=== PATIENT | female | born 1990 | race Caucasian/White ===

== ENCOUNTER 2022-07-23 17:11 | Emergency (ER) | payer SELFPAY ==
--- NOTE | 2022-07-23 18:05 | RAD REPORT ---
EXAM DESCRIPTION: RAD - Foot Right 3 View - 07/23/2022 5:50 pm CLINICAL HISTORY: Right foot pain status post injury FINDINGS: No fracture or dislocation is seen 1 millimeter linear radiopaque density lies within plantar soft tissues at the level of first IP join t which may probably represents a foreign body and should be correlated clinically
[2022-07-23] MEDS ORDERED: TETANUS & DIPHTHERIA TOX,ADULT 0.5 ML VIAL ONE (18:35)
[2022-07-23] MEDS ORDERED: BUPIVACAINE 0.5% PF 10 ML VIAL ONE (19:29)
[2022-07-23] MEDS ORDERED: LIDOCAINE 1% 20 ML MDV ONE (19:29)
--- NOTE | 2022-07-23 20:21 | EDPHYS ---
Physician Documentation [facility] Name: Nayla Dial Age: 32 yrs Sex: Female : 1990 Arrival Date: 07/23/2022 Time: 17:11 Bed 23 Private MD: ED Physician Kendall Stephens HPI: 07/23 17:35 This 32 yrs old Female presents to ER via Ambulatory with complaints of Infected toe. cp 17:35 The patient presents with right big toe pain. cp 17:35 Context: resulted from stepping on piece of glass. Associated signs and symptoms: cp Pertinent positives: swelling, erythema, Pertinent negatives: calf tenderness, fever, numbness, warmth. Patient reports stepping on shattered glass about 1 week ago and concerned piece of glass remains embedded in right great toe. 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 - Social history:: Smoking status: . ROS: 17:40 Constitutional: Negative for body aches, chills, fever, poor PO intake. cp 17:40 MS/extremity: Positive for pain, of the right great toe, foreign body sensation. 17:40 All other systems are negative. Exam: 17:45 Constitutional: The patient appears in no acute distress, alert, awake, well developed, cp well nourished. 17:45 Head/Face: Normocephalic, atraumatic. cp 17:45 Chest/axilla: Inspection: normal. 17:45 Cardiovascular: Rate: normal. 17:45 Respiratory: the patient does not display signs of respiratory distress, Respirations: normal. 17:45 Musculoskeletal/extremity: Extremities: grossly normal except: noted in the right great toe: pain, tenderness, mild swelling noted medial side distal phalanx right great toe. mild erythema and ecchymosis noted, ROM: full active range of motion, in the right great toe, Perfusion: the extremity is normally perfused throughout. Vital Signs: 17:29 BP 128 / 65; Pulse 86; Resp 16; Temp 97.9; Pulse Ox 100% on R/A; Weight 92.99 kg; Pain iw 3/10; 19:28 BP 119 / 68; Pulse 60; Resp 18; Pulse Ox 100% on R/A; Pain 0/10; pf1 17:29 Pain Scale: Adult iw 19:28 Pain Scale: Adult pf1 MDM: 17:26 Patient medically screened. cp 20:20 Data reviewed: vital signs, nurses notes, radiologic studies, plain films. cp 20:20 Differential diagnosis: fracture, foreign body, cellulitis, abscess. Counseling: I had cp a detailed discussion with the patient and/or guardian regarding: the historical points, exam findings, and any diagnostic results supporting the discharge/admit diagnosis, radiology results, to return to the emergency department if symptoms worsen or persist or if there are any questions or concerns that arise at home. ED course: VSS. Partial digital block performed with 6 ccs mixture 1% lidocaine w/o epi and 0.5% marcaine of right great toe. Small incision made lateral side distal phalanx and attempt to remove foreign body unsuccessful. Small amount pus drained from area. 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 Exp: iw 07/14/2023. Lot #: [id number]. } Route: IM; Site: left deltoid; 19:29 Follow up: Response: No adverse reaction; Marked relief of symptoms pf1 20:31 Drug: Lidocaine Infiltration (1 %) 10 ml Volume: 20 ml; Route: Infiltration; mb9 20:32 Follow up: Response: No adverse reaction; Marked relief of symptoms pf1 20:31 Drug: Bupivacaine Infiltration (0.25 %) 10 ml Route: Infiltration; mb9 20:32 Follow up: Response: No adverse reaction; Marked relief of symptoms pf1 Disposition Summary: 07/23/22 20:20 Discharge Ordered Location: Home cp Condition: Stable cp Problem: new cp Symptoms: have improved cp Diagnosis - Superficial foreign body of toe - right great toe(07/23/22 20:21) cp Followup: cp - With: Crow Nunez MD - When: 2 - 3 days - Reason: Recheck today's complaints Discharge Instructions: - Discharge Summary Sheet cp - Foreign Body cp - Form - Excuse from Work, School, or Physical Activity cp Forms: - Medication Reconciliation Form cp - Thank You Letter cp - Antibiotic Education cp - Prescription Opioid Use cp Prescriptions: - Ibuprofen 800 mg Oral Tablet - take 1 tablet by ORAL route every 8 hours As needed take with food; 30 tablet; cp Refills: 0, Product Selection Permitted - Bactrim DS 800-160 mg Oral Tablet - take 1 tablet by ORAL route every 12 hours for 10 days; 20 tablet; Refills: 0, cp Product Selection Permitted Signatures: Dispatcher [employer] Mignon Blair RN RN iw Dionicio Shelley PA PA cp Nestor, Ena Valdez RN RN mb9 Malu Washington RN pf1 Corrections: (The following items were deleted from the chart) 20:21 20:20 Superficial foreign body of toe cp cp 07/24 19:27 19:26 MS/extremity: Positive for pain, of the right great toe, foreign body sensation, cp cp 19:27 19:26 Constitutional: Negative for body aches, chills, fever, poor PO intake, cp cp 19:27 19:26 All other systems are negative, cp cp
--- NOTE | 2022-07-23 20:21 | ER ---
Nurse's Notes [facility] Name: Nayla Dial Age: 32 yrs Sex: Female : 1990 Arrival Date: 07/23/2022 Time: 17:11 Bed 23 Private MD: Diagnosis: Superficial foreign body of toe-right great toe Presentation: 07/23 17:29 Chief complaint: Patient states: stepped on some glass over a week ago and she is iw afraid it's still in there, she has swelling and bruising to right great toe. Coronavirus screen: At this time, the client does not indicate any symptoms associated with coronavirus-19. Ebola Screen: Patient negative for fever greater than or equal to 101.5 degrees Fahrenheit, and additional compatible Ebola Virus Disease symptoms Patient denies exposure to infectious person. Patient denies travel to an Ebola-affected area in the 21 days before illness onset. No symptoms or risks identified at this time. Initial Sepsis Screen: Does the patient meet any 2 criteria? No. Patient's initial sepsis screen is negative. Does the patient have a suspected source of infection? No. Patient's initial sepsis screen is negative. Risk Assessment: Do you want to hurt yourself or someone else? Patient reports no desire to harm self or others. Onset of symptoms was July 16, 2022. 17:29 Method Of Arrival: Ambulatory iw 17:29 Acuity: CHA 4 iw Triage Assessment: 19:30 General: Behavior is calm, cooperative, appropriate for age, quiet. 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 - Social history:: Smoking status: . Screenin:25 [facility] ED Fall Risk Assessment (Adult) History of falling in the last 3 months, mb9 including since admission No falls in past 3 months (0 pts) Confusion or Disorientation No (0 pts) Intoxicated or Sedated No (0 pts) Impaired Gait No (0 pts) Mobility Assist Device Used No (0 pt) Altered Elimination No (0 pt) Score/Fall Risk Level 0 - 2 = Low Risk Oriented to surroundings, Maintained a safe environment, Educated pt \T\ family on fall prevention, incl call for assistance when getting out of bed. Abuse screen: Denies threats or abuse. Nutritional screening: No deficits noted. Tuberculosis screening: No symptoms or risk factors identified. Assessment: 19:24 General: Appears in no apparent distress. Pain: Complains of pain in right big toe Pain mb9 radiates to right foot Pain currently is 8 out of 10 on a pain scale. Quality of pain is described as throbbing, Pain began 2-3 days ago. Is continuous, Aggravated by increased activity. Neuro: Arias Agitation-Sedation Scale (RASS): 0 - Alert and Calm Level of Consciousness is awake, alert, obeys commands, Oriented to person, place, time, situation, Appropriate for age. Cardiovascular: Patient's skin is warm and dry. Respiratory: Airway is patent. GI: No signs and/or symptoms were reported involving the gastrointestinal system. Derm: Skin is pink, warm \T\ dry. Musculoskeletal: Range of motion: intact in all extremities, Swelling present in right big toe. Vital Signs: 17:29 BP 128 / 65; Pulse 86; Resp 16; Temp 97.9; Pulse Ox 100% on R/A; Weight 92.99 kg; Pain iw 3/10; 19:28 BP 119 / 68; Pulse 60; Resp 18; Pulse Ox 100% on R/A; Pain 0/10; pf1 17:29 Pain Scale: Adult iw 19:28 Pain Scale: Adult pf1 ED Course: 17:14 Patient arrived in ED. mr 17:16 Dionicio Shelley PA is PHCP. cp 17:16 Kendall Stephens MD is Attending Physician. cp 17:30 Triage completed. iw 17:31 Arm band placed on. iw 17:52 XRAY Foot RIGHT 3 View In Process Unspecified. EDMS 19:24 Ena Baez RN is Primary Nurse. mb9 19:26 Placed in gown. Bed in low position. Call light in reach. Side rails up X 1. Client mb9 placed on continuous cardiac and pulse oximetry monitoring. NIBP monitoring applied. 19:26 No provider procedures requiring assistance completed. Patient did not have IV access mb9 during this emergency room visit. 20:20 Crow Nunez MD is Referral Physician. 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 Exp: iw 07/14/2023. Lot #: [id number]. } Route: IM; Site: left deltoid; 19:29 Follow up: Response: No adverse reaction; Marked relief of symptoms pf1 20:31 Drug: Lidocaine Infiltration (1 %) 10 ml Volume: 20 ml; Route: Infiltration; mb9 20:32 Follow up: Response: No adverse reaction; Marked relief of symptoms pf1 20:31 Drug: Bupivacaine Infiltration (0.25 %) 10 ml Route: Infiltration; mb9 20:32 Follow up: Response: No adverse reaction; Marked relief of symptoms pf1 Medication: 19:25 VIS not applicable for this client. mb9 Outcome: 20:20 Discharge ordered by MD. cp 20:37 Discharged to home ambulatory. pf1 20:37 Condition: improved 20:37 Discharge instructions given to patient, Instructed on discharge instructions, follow up and referral plans. Demonstrated understanding of instructions, follow-up care, medications, Prescriptions given X 2. 20:37 Patient left the ED. pf1 Signatures: Dispatcher [employer] Ena Warner Irene RN QUINCY iw Dionicio Shelley PA PA cp Ena Baez RN RN Malu Khalil RN RN pf1
[2022-07-23 21:36] VITALS: BP 148/72; TEMP 98.5; O2SAT 100
== END 2022-07-23 20:37 | disposition home or self-care (01) ==
LOC: ER 17:11
PROC: 0JCQ3ZZ Extirpation of Matter from Right Foot Subcutaneous Tissue and Fascia, Percutaneous Approach (ICD-10-PCS; principal; 2022-07-23)
DX: S90.451A Superficial foreign body, right great toe, initial encounter (principal); Z23 Encounter for immunization
CPT/HCPCS: 90471; 90714; 99284; J2001

== ENCOUNTER 2022-07-26 22:18 | Inpatient (IN) | payer SELFPAY ==
[2022-07-26] MEDS ORDERED: METHYLPREDNISOLONE 125 MG INJ ONE (23:17)
[2022-07-26] MEDS ORDERED: DIPHENHYDRAMINE 50 MG/ML VIAL ONE (23:17)
[2022-07-26] MEDS ORDERED: NA CHLORIDE 0.9% 250 ML ONE (23:18)
[2022-07-26] MEDS ORDERED: NA CHLORIDE 0.9% 1,000 ML ONE (23:18)
[2022-07-26] MEDS ORDERED: VANCOMYCIN 1 GM/VIAL ONE (23:18)
[2022-07-26] MEDS ORDERED: FAMOTIDINE 20 MG/2 ML VIAL IV ONE (23:18)
[2022-07-26 23:20] LABS: Absolute Lymphocytes (CBC) 0.4 K/uL (0.7-4.9); Hematocrit 37.3 % (36.0-45.0); Lymphocytes % 5.5 % (15.3-44.8); MCV 87.7 fL (80-100); RBC Red Blood Cell Count 4.25 M/uL (3.86-4.86)
[2022-07-26 23:38] LABS: Albumin 3.6 g/dL (3.4-5.0); Bilirubin Total 0.4 mg/dL (0.2-1.0); Potassium 3.4 mEq/L (3.5-5.1); Protein, Total 7.2 g/dL (6.4-8.2)
[2022-07-26 23:56] LABS: Protime INR 1.12
--- NOTE | 2022-07-26 23:58 | EDPHYS ---
Physician Documentation [facility] Name: Nayla Dial Age: 32 yrs Sex: Female : 1990 Arrival Date: 07/26/2022 Time: 22:18 Bed 18 Private MD: ED Physician Dionicio Cordero HPI: 07/26 23:35 This 32 yrs old Female presents to ER via EMS with complaints of Wound Infection. kb 23:35 The patient presents with cellulitis of the right first toe and dorsum of right foot. kb Description: erythematous, hot, swollen. Onset: The symptoms/episode began/occurred 5 day(s) ago. Possible cause(s): unknown. Associated signs and symptoms: Pertinent positives: erythema, swelling. Modifying factors: the symptoms are alleviated by nothing, the symptoms are aggravated by pressure. Severity of symptoms: At their worst the symptoms were moderate, in the emergency department the symptoms are unchanged. The patient has not experienced similar symptoms in the past. The patient has not recently seen a physician. Pt reports she developed redness and swelling to right great toe on 07/22. Was seen here on 07/23 and started on Bactrim. States the redness and swelling has gotten worse and started traveling up foot since then. Reports nausea and fever. Also reports rash, redness and itching to hands and wrists after taking bactrim. . Historical: - Allergies: 22:28 No Known Allergies; ha1 - Home Meds: 22:28 None [Active]; ha1 - Immunization history:: Adult Immunizations up to date. - Social history:: Smoking status: unknown. ROS: 23:32 Constitutional: Negative for fever, chills, and weight loss. kb 23:32 Skin: Positive for cellulitis, erythema, of the dorsum of right foot and right first toe. 23:32 All other systems are negative. Exam: 23:32 Constitutional: This is a well developed, well nourished patient who is awake, alert, kb and in no acute distress. Head/Face: Normocephalic, atraumatic. ENT: Moist Mucous membranes Cardiovascular: Regular rate and rhythm with a normal S1 and S2. No gallops, murmurs, or rubs. No pulse deficits. Respiratory: Respirations even and unlabored. No increased work of breathing. Talking in full sentences MS/ Extremity: Pulses equal, no cyanosis. Neurovascular intact. Full, normal range of motion. Neuro: Awake and alert, GCS 15, oriented to person, place, time, and situation. Moves all extremities. Normal gait. 23:32 Skin: cellulitis, that is moderate, on the right first toe and dorsum of right foot. 07/27 00:34 ECG was reviewed by the Attending Physician. kb Vital Signs: 07/26 22:25 BP 117 / 69; Pulse 86; Resp 17 S; Temp 99.3; Pulse Ox 99% on R/A; Weight 74.84 kg; ha1 Height 5 ft. 6 in. ; Pain 0/10; 23:30 BP 101 / 79; Pulse 70; Resp 18 S; Pulse Ox 100% on R/A; ha1 07/27 00:30 BP 102 / 59; Pulse 79; Resp 18 S; Temp 98.8; Pulse Ox 99% on R/A; ha1 07/26 22:25 Body Mass Index 26.63 (74.84 kg, 167.64 cm) [facility] 07/26 22:25 Pain Scale: Adult [facility] MDM: 07/26 22:36 Patient medically screened. kb 23:33 Differential diagnosis: cellulitis, abscess. Data reviewed: vital signs, nurses notes. kb Consideration of Admission/Observation Patient was admitted/placed on observation. Management of patient was discussed with the following: Hospitalist: Amita SAMUELS accepts pt for admission under Dr Espinoza. 23:34 Historians other than the Patient: EMS: [facility]. Counseling: I had a detailed kb discussion with the patient and/or guardian regarding: the historical points, exam findings, and any diagnostic results supporting the discharge/admit diagnosis, lab results, the need for further work-up and treatment in the hospital. 07/26 22:43 Order name: Blood Culture Adult (2) kb 07/26 22:43 Order name: CBC with Diff; Complete Time: 23:56 kb 07/26 22:43 Order name: CMP; Complete Time: 23:39 kb 07/26 22:43 Order name: Lactate w/ 2H reflex if indic.; Complete Time: 00:11 kb 07/26 22:43 Order name: Protime (+inr); Complete Time: 23:57 kb 07/26 22:43 Order name: Ptt, Activated; Complete Time: 23:57 kb 07/26 22:43 Order name: EKG; Complete Time: 22:46 kb 07/26 22:43 Order name: Cardiac monitoring; Complete Time: 23:04 kb 07/26 22:43 Order name: EKG - Nurse/Tech; Complete Time: 00:54 kb 07/26 22:43 Order name: IV Saline Lock - Large Bore; Complete Time: 23:04 kb 06 22:43 Order name: Labs collected and sent; Complete Time: 23:04 kb 06 22:43 Order name: O2 Per Protocol; Complete Time: 23:28 kb 06 22:43 Order name: O2 Sat Monitoring; Complete Time: 23:28 kb 06 22:43 Order name: Vital Signs; Complete Time: 23:04 kb EC/03 00:34 Rate is 66 beats/min. Rhythm is regular. QRS [place] is Normal. [place] interval is normal at kb 146 msec. QRS interval is normal at 76 msec. QT interval is normal at 442 msec. Administered Medications: 07/26 23:15 Drug: NS 0.9% IV 1000 ml Route: IV; Rate: 1000 ml; Site: right antecubital; [facility] 07/27 01:30 Follow up: Response: No adverse reaction; IV Status: Completed infusion; IV Intake: ha1 1000ml 07/26 23:15 Drug: diphenhydrAMINE IVP 12.5 mg Route: IVP; Site: right antecubital; 07/27 00:00 Follow up: Response: No adverse reaction [facility] 07/26 23:18 Drug: MethylPrednisoLONE IVP 125 mg Route: IVP; Site: right antecubital; 07/27 00:00 Follow up: Response: No adverse reaction 07/26 23:21 Drug: Famotidine IVP 20 mg Route: IVP; Site: right antecubital; 07/27 00:00 Follow up: Response: No adverse reaction 07/26 23:26 Drug: vancoMYCIN IVPB 1 grams Route: IVPB; Infused Over: 2 hrs; Site: right antecubital;[facility] 07/27 01:30 Follow up: Response: No adverse reaction; IV Status: Completed infusion; IV Intake: ha1 250ml 00:35 Drug: Ketorolac IVP 30 mg Route: IVP; Site: right antecubital; ha1 06:53 Follow up: Response: No adverse reaction ha1 Disposition Summary: 07/26/22 23:57 Hospitalization Ordered Hospitalization Status: Inpatient Admission kb Provider: Thierno Espinoza Condition: Stable kb Problem: new kb Symptoms: are unchanged kb Bed/Room Type: Standard kb Location: Telemetry/MedSurg (Inpatient)(07/27/22 10:26) dw Room Assignment: [facility](07/27/22 10:26) Diagnosis - Cellulitis of right lower limb - failed outpatient treatment kb Forms: - Medication Reconciliation Form kb - SBAR form kb Signatures: Dispatcher [employer] EDFozia Anderson FNP-C FNP-Ckb Woody, Diana RN RN dw Bobby Momin RN RN jb4 Linda Cortez RN RN ha1 Lauren Stanley PA-C PA-C sb4 Corrections: (The following items were deleted from the chart) 00:48 07/26 23:57 Telemetry/MedSurg (Inpatient) kb jb4 07/27 00:48 07/26 23:57 kb jb4 07/27 10:26 00:48 [facility] ER HOLD jb4 dw 10:26 00:48 ERHOLD- jb4 dw
--- NOTE | 2022-07-26 23:58 | ER ---
Nurse's Notes [facility] Name: Nayla Dial Age: 32 yrs Sex: Female : 1990 Arrival Date: 07/26/2022 Time: 22:18 Bed 18 Private MD: Diagnosis: Cellulitis of right lower limb-failed outpatient treatment Presentation: 07/26 22:25 Chief complaint: EMS states: 32 year old female reports being here before do to a ha1 broken glass on her right great toe. She has been taking her antibiotics as prescribed but today she feel her infection is getting worse. Coronavirus screen: Vaccine status:. Ebola Screen: No symptoms or risks identified at this time. Initial Sepsis Screen: Does the patient meet any 2 criteria? No. Patient's initial sepsis screen is negative. Does the patient have a suspected source of infection? Yes: Skin breakdown/wound. Risk Assessment: Do you want to hurt yourself or someone else? Patient reports no desire to harm self or others. Onset of symptoms was July 26, 2022. 22:25 Method Of Arrival: EMS: [facility] ha1 22:25 Acuity: CHA 3 ha1 Triage Assessment: 22:28 General: Appears comfortable, Behavior is calm, cooperative. Pain: Denies pain. Neuro: ha1 Level of Consciousness is awake, alert, obeys commands, Oriented to person, place, time, situation. Cardiovascular: Patient's skin is warm and dry. Respiratory: Airway is patent Respiratory effort is even, unlabored, Respiratory pattern is regular, symmetrical. GI: No signs and/or symptoms were reported involving the gastrointestinal system. : No signs and/or symptoms were reported regarding the genitourinary system. Derm: Skin is pink, warm \T\ dry. Wound noted plantar aspect of right first toe. Musculoskeletal: Circulation, motion, and sensation intact. Range of motion: intact in all extremities. Historical: - Allergies: 22:28 No Known Allergies; ha1 - Home Meds: 22:28 None [Active]; ha1 - Immunization history:: Adult Immunizations up to date. - Social history:: Smoking status: unknown. Screenin:30 Abuse screen: Denies threats or abuse. Denies injuries from another. Nutritional ha1 screening: No deficits noted. Tuberculosis screening: No symptoms or risk factors identified. Assessment: 22:25 Reassessment: see triage assessment. ha1 23:30 Reassessment: Patient and/or family updated on plan of care and expected duration. Pain ha1 level reassessed. Patient is alert, oriented x 3, equal unlabored respirations, skin warm/dry/pink. 07/27 00:30 Reassessment: Patient and/or family updated on plan of care and expected duration. Pain ha1 level reassessed. Patient is alert, oriented x 3, equal unlabored respirations, skin warm/dry/pink. 01:30 Reassessment: Patient and/or family updated on plan of care and expected duration. Pain ha1 level reassessed. Patient is alert, oriented x 3, equal unlabored respirations, skin warm/dry/pink. 07:00 Reassessment: No changes from previously documented assessment. Report received from [facility] retail shift manager RN. Vital Signs: 07/26 22:25 BP 117 / 69; Pulse 86; Resp 17 S; Temp 99.3; Pulse Ox 99% on R/A; Weight 74.84 kg; [facility] Height 5 ft. 6 in. ; Pain 0/10; 23:30 BP 101 / 79; Pulse 70; Resp 18 S; Pulse Ox 100% on R/A; ha1 07/27 00:30 BP 102 / 59; Pulse 79; Resp 18 S; Temp 98.8; Pulse Ox 99% on R/A; [facility] 07/26 22:25 Body Mass Index 26.63 (74.84 kg, 167.64 cm) [facility] 07/26 22:25 Pain Scale: Adult [facility] ED Course: 07/26 22:25 Patient arrived in ED. wm 22:25 Linda Cortez, QUINCY is Primary Nurse. 1 22:28 Triage completed. 1 22:30 Arm band placed on right wrist. ha1 22:30 Patient has correct armband on for positive identification. Bed in low position. Call [facility] light in reach. Side rails up X 1. 22:36 Fozia Blanco FNP-C is PHCP. kb 22:36 Dionicio Cordero MD is Attending Physician. kb 22:55 Initial lab(s) drawn, by or, sent to lab. First set of blood cultures drawn by me. mb4 23:03 Lights dimmed. mb4 23:03 Inserted saline lock: 20 gauge in right antecubital area, using aseptic technique. mb4 Blood collected. 23:04 CBC with Diff Sent. mb4 23:04 CMP Sent. mb4 23:04 Lactate w/ 2H reflex if indic. Sent. mb4 23:04 Protime (+inr) Sent. mb4 23:04 Ptt, Activated Sent. mb4 23:04 Blood Culture Adult (2) Sent. mb4 23:28 Blood Culture Adult (2) Sent. ha1 23:28 CBC with Diff Sent. ha1 23:28 CMP Sent. ha1 23:28 Lactate w/ 2H reflex if indic. Sent. ha1 23:28 Protime (+inr) Sent. ha1 23:28 Ptt, Activated Sent. ha1 23:57 Thierno Espinoza is Hospitalizing Provider. 07/27 00:33 EKG done, by ED staff, reviewed by Fozia DUFFY. mb4 01:30 No provider procedures requiring assistance completed. ha1 01:30 Patient admitted, IV remains in place. ha1 Administered Medications: 07/26 23:15 Drug: NS 0.9% IV 1000 ml Route: IV; Rate: 1000 ml; Site: right antecubital; [facility] 07/27 01:30 Follow up: Response: No adverse reaction; IV Status: Completed infusion; IV Intake: ha1 1000ml 07/26 23:15 Drug: diphenhydrAMINE IVP 12.5 mg Route: IVP; Site: right antecubital; [facility] 07/27 00:00 Follow up: Response: No adverse reaction [facility] 07/26 23:18 Drug: MethylPrednisoLONE IVP 125 mg Route: IVP; Site: right antecubital; [facility] 07/27 00:00 Follow up: Response: No adverse reaction [facility] 07/26 23:21 Drug: Famotidine IVP 20 mg Route: IVP; Site: right antecubital; [facility] 07/27 00:00 Follow up: Response: No adverse reaction [facility] 07/26 23:26 Drug: vancoMYCIN IVPB 1 grams Route: IVPB; Infused Over: 2 hrs; Site: right antecubital;[facility] 07/27 01:30 Follow up: Response: No adverse reaction; IV Status: Completed infusion; IV Intake: ha1 250ml 00:35 Drug: Ketorolac IVP 30 mg Route: IVP; Site: right antecubital; ha1 06:53 Follow up: Response: No adverse reaction ha1 Medication: 01:30 VIS not applicable for this client. ha1 Intake: 01:30 IV: 250ml; Total: 250ml. ha1 01:30 IV: 1000ml; Total: 1250ml. ha1 Outcome: 07/26 23:57 Decision to Hospitalize by Provider. kb 07/27 01:30 Admitted to ER Hold. Please see [facility] for further documentation. ha1 Condition: stable Discharge instructions given to patient, Instructed on the need for admit, Demonstrated understanding of instructions. 11:39 Admitted to Tele accompanied by tech, via wheelchair, room 409, Report called to aaron Kim RN 11:54 Patient left the ED. [facility] Signatures: Fozia Blanco, ORTHOTICS PROSTHETICS ASSISTANT-C ORTHOTICS PROSTHETICS ASSISTANT-Alba Velazquez 4 Luciano Travis, RN RN 1 Miryam Zhang Gloria Rodney RN RN 3 Linda Cortez RN RN [facility]
--- NOTE | 2022-07-27 00:22 | P.HP ---
Certification for Inpatient Patient admitted to: Inpatient With expected LOS: <2 Midnights Patient will require the following post-hospital care: None Practitioner: I am a practitioner with admitting privileges, knowledge of patient current condition, hospital course, and medical plan of care. Services: Services provided to patient in accordance with Admission requirements found in Title 42 Section 412.3 of the Code of Federal Regulations Patient History Date of Service: 07/27/22 Reason for admission: Cellulitus R Foot History of Present Illness: Ms. Lozano is a 32-year-old female with no past medical history who presented to the emergency department with complaints of right toe infection. Patient was seen in this emergency department 3 days ago after stepping on a piece of glass. The wound was explored and cleaned, she received a tetanus shot, and was discharged with Bactrim. She states that she has been compliant with that, however she has had a rash/hives secondary to it. In addition, she states that the redness has now extended down from her toe to her foot. She also reports subjective fever. She has a history of toxic shock syndrome so is concerned about sepsis. Her vital signs are stable upon arrival. No significant lab abnormalities. She was given vancomycin in emergency department. ED provider wishes admit patient for further management of cellulitis of right foot, failed outpatient treatment. Home medications list reviewed: Yes (NA) - Past Medical/Surgical History Diabetic: No Past Medical History: Patient denies medical history Past Surgical History: Patient denies surgical history Psychosocial/ Personal History: Patient lives at home with her . - Family History Family History: Reviewed- Non-Contributory - Social History Smoking Status: Never smoker Alcohol use: Yes CD- Drugs: No Caffeine use: Yes Place of Residence: Home Review of Systems 10-point ROS is otherwise unremarkable Integumentary: As per HPI Physical Examination - Vital Signs Temperature: 99.3 F Blood Pressure: 117/69 Pulse: 86 Respirations: 17 Pulse Ox (%): 99 - Physical Exam General: Alert, In no apparent distress HEENT: Atraumatic, EOMI, Sclerae nonicteric Neck: Supple, 2+ carotid pulse no bruit Respiratory: Clear to auscultation bilaterally, Normal air movement Cardiovascular: Regular rate/rhythm, Normal S1 S2 Gastrointestinal: Normal bowel sounds, No tenderness Musculoskeletal: No tenderness Integumentary: Tenderness/swelling, Erythema, Warmth (blister-like wound medial R great toe with cellulitus extending down foot) Neurological: Normal speech, Normal affect - Studies Laboratory Data (last 24 hrs) 07/26/22 22:55: PT 12.3, INR 1.12, APTT 26.0 07/26/22 22:55: Sodium 137, Potassium 3.4 L, BUN 9, Creatinine 0.93, Glucose 94, Total Bilirubin 0.4, AST 13 L, ALT 19, Alkaline Phosphatase 73 07/26/22 22:55: WBC 8.00, Hgb 12.6, Hct 37.3, Plt Count 143 L Assessment and Plan - Problems (Diagnosis) (1) Cellulitis of great toe, right Current Visit: Yes Status: Acute - Plan Patient is admitted for further management of right great toe and foot cellulitis, failed outpatient treatment. Continue IV vancomycin, started in the ED. She was previously taking Bactrim for 3 days, in which she had allergic reaction to. Blood cultures obtained. No SIRS criteria met at this time. Lactate within normal limits. Tylenol as needed for pain and fever. Monitor and replete electrolytes per protocol. Reconcile and continue home medications. VTE prophylaxis. Full code. Discharge Plan: Home Plan to discharge in: 48 Hours - Advance Directives Does patient have a Living Will: No Does patient have a Durable POA for Healthcare: No - Code Status/Comfort Care Code Status Assessed: Yes Code Status: Full Code Physician Review: Patient Assessed, Agree with Above Assessment and Plan Critical Care: No Time Spent Managing Pts Care (In Minutes): 50
[2022-07-27] MEDS ORDERED: KETOROLAC 30 MG/ML INJ ONE (00:23)
[2022-07-27] MEDS ORDERED: ONDANSETRON 4 MG/2 ML VIAL IV PRN (01:15)
[2022-07-27] MEDS ORDERED: VANCOMYCIN 1 GM in NA CHLORIDE 0.9% 250 ML IVPB SCH (01:15)
[2022-07-27 02:11] VITALS: BMI 27.4
[2022-07-27] MEDS ORDERED: VANCOMYCIN 500 MG in NA CHLORIDE 0.9% 100 ML IVPB ONE (02:15)
[2022-07-27] MEDS ORDERED: NA CHLORIDE 0.9% 100 ML ONE (04:18)
[2022-07-27] MEDS ORDERED: VANCOMYCIN 500 MG/VIAL ONE (04:18)
[2022-07-27] MEDS: ACETAMINOPHEN 500 MG TAB PO PRN ×2 (15:13→21:44)
--- NOTE | 2022-07-27 15:52 | P.PN ---
Date of Service: 07/27/22 Patient seen and examined. Noted right great toe area of macerated skin likely secondary to ruptured blister and surrounding erythema. Patient also complaining of itching. Plan: Aggressive antibiotic therapy. Supportive measures Hydroxyzine as needed for itching. Dr. Nunez consulted for wound debridement Deep tissue wound culture.
[2022-07-27] MEDS: hydrOXYzine HCL 25 MG TAB PO PRN ×2 (16:00→21:45)
[2022-07-27] MEDS: Levofloxacin 750mg IV 750 MG/150 ML BAG IV SCH (16:13)
[2022-07-27] MEDS: VANCOMYCIN 1.5 GM in NA CHLORIDE 0.9% 500 ML IVPB SCH (21:44)
[2022-07-28 04:25] LABS: Absolute Lymphocytes (CBC) 1.3 K/uL (0.7-4.9); Hematocrit 33.3 % (36.0-45.0); Lymphocytes % 20.3 % (15.3-44.8); MCV 88.7 fL (80-100); MPV 10.7 fL (7.6-11.3); RBC Red Blood Cell Count 3.76 M/uL (3.86-4.86)
[2022-07-28 05:15] LABS: Specific Gravity 1.023 (1.005-1.030)
[2022-07-28 05:37] LABS: Specific Gravity 1.023 (1.005-1.030); Transitional Epithelial <5 /HPF (None Seen); Urine Bacteria >50 /HPF (<20); Urine Bilirubin NEGATIVE (Negative); Urine Blood Negative (Negative); Urine Clarity Turbid (Clear); Urine Color Yellow (Yellow); Urine Glucose NEGATIVE (Negative); Urine Mucus 2+ /HPF (None Seen); Urine Protein TRACE (Negative); Urine Urobilinogen Normal (Normal)
[2022-07-28] MEDS: ACETAMINOPHEN 500 MG TAB PO PRN (06:25)
[2022-07-28] MEDS: hydrOXYzine HCL 25 MG TAB PO PRN (06:25)
[2022-07-28] MEDS ORDERED: Ringers Lactate 1,000 ML IV ONE (11:35)
[2022-07-28] MEDS ORDERED: FENTANYL CITR 100 MCG/2 ML ONE (12:43)
[2022-07-28] MEDS ORDERED: MIDAZOLAM HCL 2 MG/2 ML INJ ONE (12:43)
[2022-07-28] MEDS ORDERED: propofoL 200 MG/20 ML VIAL IV ONE (12:43)
[2022-07-28] MEDS: LIDOCAINE HCL/EPINEPHRINE 20 ML MDV ONE ×2 (12:51→13:05)
--- NOTE | 2022-07-28 13:21 | P.OP ---
Preoperative diagnosis: RIGHT Great Toe Infection Postoperative diagnosis: RIGHT Great Toe Infection Primary procedure: Debridement of RIGHT Great Toe Infected Wound Anesthesia: GETA + Local Estimated blood loss: <2cc Specimen: Debridement Tissue, Cultures Findings: Infected tissue Lateral RIGHT Great toe @ PIP joint Complications: None Transferred to: Recovery Room Condition: Good
--- NOTE | 2022-07-28 13:47 | CON ---
Date of Consultation: 07/28/2022 Brief History Of Present Illness: The patient is a 32-year-old female with no past medical history t hat she is aware of, but she has gestational diabetes, who states she stepped on a piece of broken gl ass she believes approximately a week or 2 ago and as such, she continued to have worsening infection of her right great toe, it continued to become more tender. There was some drainage consistent with pus and pain continued to increase. As such, she came to the emergency room, had the wound explored , cleaned and received a tetanus shot and was discharged home on Bactrim. She states that she had so me rashes and hives with Bactrim and as such, stopped taking medication. She noticed the redness con tinued to get worse, the pain continued to get worse despite the drainage she continued to come, and she was worried about infection and possible abscess of the toe. Past Medical History: Denies any other than gestational diabetes and toxic shock syndrome. Past Surgical History: D and C. Social History: She lives at home with her . She is employed. She smokes THC, cigarettes. She denies alcohol, denies recreational drug use. Review of Systems: Ten-point review of systems other than HPI, denies. Physical Examination: General: At the time of my examination; she is awake, alert, oriented. Psychiatric: She is appropriate, conversive. HEENT: She is normocephalic. Sclerae anicteric. Mucous membranes are moist. Oropharynx clear. Neck: Supple without JVD. Chest: Expansion and excursion. Cardiovascular: Regular rate and rhythm. Pulmonary: Clear to auscultation bilaterally. Abdomen: Soft. Extremities: Focused examination of right lower extremity shows a cellulitic right great toe with fl uid collection on the lateral aspect of the right great toe consistent with an abscess. There was so me superficial necrosis in this area as well and cellulitis extending up to mid foot. Remainder of t he examination is essentially unremarkable. Laboratory Data: She had a laboratory exam, which reveals a white blood cell count of 6.4, hemoglobi n 11.1, hematocrit 33.3, platelet count is 134. Sodium of 141, potassium 4.0, chloride 115, carbon d ioxide 22, BUN is 17, creatinine 0.78. Her UA showed positive leukocyte esterase, red blood cells, w cheikh blood cells 20 to 50 consistent with urinary tract infection, bacteria greater than 50. She has yeast present as well. test is negative. She had a foot x-ray performed on 07/23, which was read by Dr. Slade as 1 mm linear radiopaque density plantar soft tissues at first IP joint, which may be probably represents a foreign body, should be clinically correlated. Assessment And Plan: This is a 32-year-old woman, who comes in with a right great toe infection like ly from a foreign body. 1.IV fluid hydration. 2.Antibiotic coverage. 3.I have explained risks, benefits, and alternatives of debridement and removal of foreign body of r ight great toe including, but not limited to bleeding, infection, damage to surrounding tissue, need for further operation and procedures, limb loss such as an amputation of the toe, need for ongoing lees rgery and ongoing wound care. The patient understands that there could be risks associated with surg timoteo as well, not related directly to the surgery such as anesthesia related complications, blood clot s, heart attacks, strokes, and other unforeseen complications. The patient agrees to proceed as nic cated with surgery. All questions were answered. MERVIN/SOLITARIO Voice ID: [id number] Report ID: [id number]
[2022-07-28 14:01] VITALS: BP 112/53; TEMP 97.7; O2SAT 99
--- NOTE | 2022-07-28 14:05 | OP ---
Date of Procedure: 07/28/2022 Surgeon: Crow Nunez MD, Preoperative Diagnosis: Right great toe infection. Postoperative Diagnosis: Right great toe infection. Procedure Performed: Debridement of right great toe infected wound. Anesthesia: General endotracheal plus local with 1% lidocaine with epinephrine. Estimated Blood Loss: Less than 2 cc. Specimen: Debridement tissue and culture sent for both aerobic and anaerobic speciation. Findings: There was an infected tissue of the right great toe on the lateral aspect at the interphal angeal joint. Complications: None. Disposition: The patient was transferred to the recovery room in good condition. Procedure In Detail: After informed consent was obtained, the patient was prepped and draped in the usual sterile fashion after adequate anesthesia was achieved. With a combination of general anesthes ia and local injection in the area of the lateral aspect of the right great toe, I opened a small randy k incision overlying an area of fluid collection, abscess type material was emanating from this. I c ultured it for both aerobic and anaerobic speciation at this time. At this point, I used tenotomy sc issors to unroof the necrotic tissue on the top of the epidermal plane circumferentially around for a pproximately 2 cm x 1 cm. I then inspected the lateral aspect of the toe. There were 2 areas of con cern consistent with a foreign body type wound. There was a small punctate wound on the plantar late ral aspect, which was half a cm in size, which had some nonviable tissue. This was circumferentially dissected out using a knife and Metzenbaum scissors down into the plantar fascia. At this point, th is was sent off for pathologic examination. I then focused on the more proximal area near the interp halangeal joint and circumferentially dissected an area of necrosis/infected nonviable tissue circumf erentially around using a same said 15 blade down into the deep dermal plane and abutting all the way up to the tendinous connections on the lateral aspect of the toe. I removed this tissue using a com bination of sharp dissection with Metzenbaum scissors and sent for pathologic examination. I felt li ke a small palpable foreign body perhaps in the specimen. I palpated the remainder of the toe and in spected the area, irrigated it, and palpated the area to palpate for any additional foreign body frag ments, which might be present, which were imaged preoperatively, but could not be palpated during the procedure as such. I then irrigated the area copiously, achieved hemostasis easily with electrocaut timoteo, and then packed the wound with Vashe-soaked gauze after all nonviable tissue was removed and inf ected tissue was removed. At this point, the wound was then wrapped with sterile dressing and the pa tient tolerated the procedure well without evidence of complication and transferred to PACU in good c ondition. All counts were correct at the end of the case. MERVIN/SOLITARIO Voice ID: [id number] Report ID: [id number]
--- NOTE | 2022-07-28 14:15 | P.DS ---
Admission Date: 07/27/22 Discharge Date: 07/28/22 Disposition: ROUTINE DISCHARGE Discharge Condition: FAIR Reason for Admission: Cellulitus R Foot - Problems (1) Cellulitis of great toe, right Current Visit: Yes Status: Acute Brief History of Present Illness: Ms. Lozano is a 32-year-old female with no past medical history who presented to the emergency department with complaints of right toe infection. Patient was seen in this emergency department 3 days ago after stepping on a piece of glass. The wound was explored and cleaned, she received a tetanus shot, and was discharged with Bactrim. She states that she has been compliant with that, however she has had a rash/hives secondary to it. In addition, she states that the redness got worse and extended down from her toe to her foot. She also reported subjective fever. She has a history of toxic shock syndrome and was concerned about sepsis. No significant lab abnormalities. She was given vancomycin in emergency department. Patient was admitted for further management. Hospital Course: Patient admitted to the medical floor and treated with IV Levaquin and vancomycin. He was seen by Dr. Nunez who performed wound debridement. Patient vitals have been stable. She has been afebrile, devitalized tissues removed. She is deemed stable for discharge. Patient is discharged with oral Levaquin and doxycycline. She will follow-up with Dr. Nunez within 2 days in the office. Vital Signs/Physical Exam: Temp Pulse Resp BP Pulse Ox 97.7 F 85 18 112/53 L 99 07/28/22 13:59 07/28/22 13:59 07/28/22 13:59 07/28/22 13:59 07/28/22 11:20 General: Alert, In no apparent distress, Oriented x3 HEENT: Mucous membr. moist/pink Neck: JVD not distended Respiratory: Clear to auscultation bilaterally, Normal air movement Cardiovascular: No edema, Regular rate/rhythm, Normal S1 S2 Gastrointestinal: Soft and benign, Non-distended Neurological: Normal strength at 5/5 x4 extr Laboratory Data at Discharge: WBC 6.40 thou/uL (4.3-10.9) 07/28/22 04:02 Hgb 11.1 g/dL (12.0-15.0) L 07/28/22 04:02 Hct 33.3 % (36.0-45.0) L 07/28/22 04:02 Plt Count 134 thou/uL (152-406) L 07/28/22 04:02 PT 12.3 SECONDS (9.5-12.5) 07/26/22 22:55 INR 1.12 07/26/22 22:55 APTT 26.0 SECONDS (24.3-36.9) 07/26/22 22:55 Sodium 141 mEq/L (136-145) 07/28/22 04:02 Potassium 4.0 mEq/L (3.5-5.1) 07/28/22 04:02 BUN 17 mg/dL (7-18) 07/28/22 04:02 Creatinine 0.78 mg/dL (0.55-1.02) 07/28/22 04:02 Glucose 101 mg/dL (74-106) 07/28/22 04:02 Total Bilirubin 0.4 mg/dL (0.2-1.0) 07/26/22 22:55 AST 13 U/L (15-37) L 07/26/22 22:55 ALT 19 U/L (13-56) 07/26/22 22:55 Alkaline Phosphatase 73 U/L (45-117) 07/26/22 22:55 Home Medications: Codeine/APAP [Tylenol W/Codeine #3 tab] 1 tab PO Q6HP PRN #20 tab 07/28/22 Doxycycline Hyclate 100 mg PO BID #20 cap 07/28/22 levoFLOXacin [Levaquin] 750 mg PO DAILY #10 tab 07/28/22 New Medications: Codeine/APAP [Tylenol W/Codeine #3 tab] 1 tab PO Q6HP PRN #20 tab PRN Reason: Pain Doxycycline Hyclate 100 mg PO BID #20 cap levoFLOXacin [Levaquin] 750 mg PO DAILY #10 tab Diet: Regular Followup: Crow Nunez MD [ACTIVE - CAN ADMIT] - (Within 2 days.) Unknown,U [Primary Care Provider] - Time spent managing pt's care (in minutes): 32
--- NOTE | 2022-07-28 14:19 | EKG ---
Test Date: 2022-07-27 Test Time: 00:30:57 [employer] Repairer: DEANNA MEASUREMENT RESULTS: Intervals: Rate: 66 PA: 146 QRSD: 76 QT: 422 QTc: 442 Eckert: P: 59 PA: 146 QRS: 65 T: 70 INTERPRETIVE STATEMENTS: Normal sinus rhythm with sinus arrhythmia Nonspecific ST abnormality Abnormal ECG No previous ECG available for comparison Electronically Signed On 07-28-22 14:17:17 CDT by Louis Dykes
[2022-07-28] MEDS ORDERED: CODEINE 30MG/APAP 300MG TAB PO ONE ×2 (14:58→15:10)
[2022-07-28] MEDS: Levofloxacin 750mg IV 750 MG/150 ML BAG IV SCH (15:37)
[2022-07-28] MEDS: VANCOMYCIN 1.5 GM in NA CHLORIDE 0.9% 500 ML IVPB SCH (15:42)
[2022-07-28] MEDS ORDERED: MORPHINE 2 MG/ML SYR IV ONE (16:59)
== END 2022-07-28 19:14 | disposition home or self-care (01) | DRG 982 ==
LOC: ER 22:18 → ERHOLD 07-27 00:10 → 4TH 07-27 11:49
PROVIDERS: ADMIT Internal Medicine; ATTEND Internal Medicine
PROC: 0JDQ0ZZ Extraction of Right Foot Subcutaneous Tissue and Fascia, Open Approach (ICD-10-PCS; principal; 2022-07-28 12:15)
DX: I96 Gangrene, not elsewhere classified (principal); L02.611 Cutaneous abscess of right foot; L03.115 Cellulitis of right lower limb; N39.0 Urinary tract infection, site not specified; L29.9 Pruritus, unspecified
CPT/HCPCS: 36415; 80048; 80053; 81001; 81025; 83605; 85025; 85610; 85730; 87040; 87070; 87075; 87077; 87086; 87088; 87186; 87205; 88304; 93005; 96365; 96366; 96375; 99285; J1200; J2250; J2270; J2704; J2930; J3010; J7030; J7040; J7050; J7120